=== PATIENT | male | born 1945 | race Caucasian/White ===

== ENCOUNTER → 2018-01-14 | Outpatient (CLI) | payer MEDICARE, OTHER ==
--- NOTE | 2018-01-20 11:59 | RSPPFT ---
DATE OF PROCEDURE: 01/14/18 COMMENTS: Spirometry demonstrates an FEV1 of 1.7 at 76% of predicted, FVC of 3.0 at 108%, FEV1/FVC ratio at 55%. The FEF 25-75 is 26% of predicted. Post-bronchodilator study demonstrated significant improvements in all the spirometric values.Lung volumes demonstrated a raised RV/TLC ratio suggesting hyperinflation and air trapping. Diffusion capacity is normal. Flow volume loops suggest an obstructive defect. Room air arterial blood gases demonstrated a PCO2 of 38, PO2 of 92, pH of 7.42 with an acid based balance. IMPRESSION: 1. Moderate obstructive disease. 2. Significant response to use of bronchodilator indicating reversibility. 3. Moderate loss in diffusion capacity. 4. When compared to previous PFT of 2014, there have been no significant changes.
== END ==
LOC: PHRSP 07:48
PROVIDERS: ATTEND Internal Medicine Pulmonary Disease
DX: R91.1 Solitary pulmonary nodule (principal); R05 Cough
CPT/HCPCS: 36600; 82805; 94060; 94726; 94729